=== PATIENT | male | born 1940 ===

== ENCOUNTER 2023-05-08 14:08 | Outpatient (AMB) | payer MEDICARE, SELFPAY ==
[2023-05-08 14:30] VITALS: BP 136/70; PULSE 103; TEMP 36.3; O2SAT 96; BMI 27.5
--- NOTE | 2023-05-08 14:30 | A.OFFVIS_ITS ---
Intake Vital Signs 05/08/23 14:30 Height 5 ft 10 in Weight 191 lb 5.78 oz BMI 27.5 BP 136/70 Blood Pressure Location Rt brachial Position Sitting Pulse 103 H Pulse Source Pulse Oximeter Temp 97.3 F Temp Source Skin Pulse Oximetry (%) 96 Intake Visit Reasons: Worsening Arthritis ? of psoriasis vs RA Intake Note: * New pt presents today for consult. * C/o finger pain. 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 Patient stated that he was diagnosed with psoriasis more than 30 years ago. He would usually have patches on his elbows. He never received any specific treatment for it. Back in September of 2022 he had abrupt onset of pain and swelling of his right hand. He received a 5 day course of prednisone with rapid resolution of his joint pain and swelling and improvement of his psoriasis skin rash. Over the last few months however patient has been getting worsening psoriasis rashes currently it is all over his upper extremities, on his forehead, scalp, chest and back. He never had psoriasis that severe before. He lost 5 lb over the last few months through dieting. Denies any fevers. Denies any night sweats. Patient smoked since age 2. He is unaware of any family history of autoimmune rheumatic disease. He had 1 episode of gout affecting his right big toe more than 10 years ago, he was started on treatment for gout with no recurrence of gout. He has not taken any treatment for gout for many years. [facility] Medical History (Updated 05/08/23 @ 15:48 by Fran Mack MD) Gout Osteoarthritis Pain in joint, multiple sites Psoriasis Type 2 diabetes mellitus Surgical History No history of previous surgery Social History Household Members: Other Household Members Other:: Roommate Patient Tobacco Use Status: Current everyday Tobacco user Cigarette Packs Per Day: [address] [facility] [place]ralgias Skin/Breast Reports rash Physical Exam Vital Signs: Last Vital Signs Temp 97.3 F 05/08/23 14:30 Pulse 103 H 05/08/23 14:30 BP 136/70 05/08/23 14:30 Pulse Ox 96 05/08/23 14:30 BMI result Body Mass Index 27.5 Const General: cooperative, healthy appearing and comfortable Nutritional Appearance: overweight Orientation/consciousness: patient oriented x3 Limitations: no limitations HEENT Head: Yes normocephalic and Yes atraumatic Mouth: moist mucous membranes Resp Effort & Inspection: normal respiratory effort and able to speak in complete sentences Auscultation: clear to auscultation bilaterally Cardio Rate: regular rate GI Inspection: No distended Palpation (GI): Soft to palpation and nontender Skin Other: Extensive psoriasis affecting his upper extremities bilaterally, on his scalp, top of his forehead, back of his scalp, chest, back Neuro General: patient oriented x3 Extrem Other: No active synovitis Assessment & Plan Assessment & Plan (1) Psoriasis: Code(s): L40.9 - Psoriasis, unspecified Plan: This is an 82-year-old male with a past medical history of psoriasis and gout was referred for evaluation of joint pain and swelling. Back in September of 2022 patient had abrupt onset of inflammatory arthritis rapidly improved with prednisone. Patient has had minimal psoriasis for the last 30 years however over the last few months his psoriasis has become much more extensive. On exam today patient has extensive psoriasis. There is no active synovitis today Would likely need a DMARD for control his psoriasis. Will consider methotrexate. Check Infectious screening labs. Plan to start methotrexate once blood work is completed Start prednisone therapeutic taper Recommend dermatology evaluation Follow-up in 2 months Plan I spent 47 minutes reviewing patient's chart, evaluating patient, ordering diagnostic workup, counseling patient and documenting in the chart Orders: Orders Comprehensive Met. Panel Today L40.50 - Arthropathic psoriasis, unspecified C Reactive Protein Today L40.50 - Arthropathic psoriasis, unspecified Uric Acid Today M10.9 - Gout, unspecified Complete Blood Count Auto Diff Today L40.50 - Arthropathic psoriasis, unspecified Erythrocyte Sedimentation Rate Today L40.50 - Arthropathic psoriasis, unspecified Immunofixation Pnl, Serum Today L40.50 - Arthropathic psoriasis, unspecified Protein Electrophoresis, Serum Today L40.50 - Arthropathic psoriasis, unspecified Hepatitis A,B,C Profile Today Z11.59 - Encounter for screening for other viral diseases HIV Ab/Ag Today L40.50 - Arthropathic psoriasis, unspecified T Spot TB Today Z11.7 - Encounter for testing for latent tuberculosis infection XR hand wrist LT Today L40.50 - Arthropathic psoriasis, unspecified XR hand wrist RT Today L40.50 - Arthropathic psoriasis, unspecified Hemoglobin A1c Today R73.03 - Prediabetes Medications: New prednisone Take 4 tabs by mouth once daily with breakfast for 1 week then 3 tabs daily for 1 week then 2 tabs daily for 1 week then 1 tab daily for 1 week then stop 5 mg PO DIRECTED 70 tabs 0RF Coding Level of Care Code New Pt Level 4 (99324) Diagnoses Psoriasis L40.9
== END 2023-05-08 15:24 | disposition home or self-care (01) ==
PROVIDERS: PCP Internal Medicine; Visit Provider Student in an Organized Health Care Education/Training Program
DX: L40.9 Psoriasis, unspecified (principal)
CPT/HCPCS: 99204

== ENCOUNTER 2023-05-08 14:08 | Outpatient (REF) | payer OTHER, SELFPAY ==
--- NOTE | ~2023-05-08 | XR_ITS ---
STUDY: Bilateral hands Indication: Arthropathic psoriasis COMPARISON: None TECHNIQUE: 4 view each hand Right: No erosions, fractures or dislocations. Diffuse interphalangeal joint space narrowings. MCP joint space narrowings, most pronounced third digit. First carpometacarpal sclerosis and joint space narrowing. Radiocarpal sclerosis and joint space narrowing. Left: Diffuse interphalangeal joint space narrowings. Mild metacarpal phalangeal joint space narrowings. Sclerosis and joint space narrowings first carpometacarpal and radiocarpal joints. No fracture, dislocation or bony erosions. XR/XR hand wrist RT IMPRESSION: Multilevel bilateral arthritic changes.
--- NOTE | ~2023-05-08 | XR_ITS ---
STUDY: Bilateral hands Indication: Arthropathic psoriasis COMPARISON: None TECHNIQUE: 4 view each hand Right: No erosions, fractures or dislocations. Diffuse interphalangeal joint space narrowings. MCP joint space narrowings, most pronounced third digit. First carpometacarpal sclerosis and joint space narrowing. Radiocarpal sclerosis and joint space narrowing. Left: Diffuse interphalangeal joint space narrowings. Mild metacarpal phalangeal joint space narrowings. Sclerosis and joint space narrowings first carpometacarpal and radiocarpal joints. No fracture, dislocation or bony erosions. XR/XR hand wrist LT IMPRESSION: Multilevel bilateral arthritic changes.
[2023-05-08 15:52] LABS: MANUAL DIFF FLAG NO
[2023-05-08 17:04] LABS: Basophils Absolute Auto 0.2 X10*3/uL (0.0-0.2); Basophils Percent Auto 1.3 % (0-2); Eosinophils Absolute Auto 0.2 X10*3/uL (0.0-0.4); Eosinophils Percent Auto 1.7 % (0-4); Hematocrit 48.7 % (42.0-52.0); Hemoglobin 15.7 g/dl (14.0-18.0); Imm Gran Abs Auto 0.07 X10*3/uL (0.00-0.03); Imm Gran Pct Auto 0.6 % (0.0-0.4); Lymphocytes Absolute Auto 0.9 X10*3/uL (1.2-4.9); Lymphocytes Percent Auto 8.1 % (20-40); Mean Corpuscular HGB Conc 32.2 g/dl (31.0-36.0); Mean Corpuscular Hemoglobin 32.3 pg (27.0-33.0); Mean Corpuscular Volume 100.2 fL (80.0-98.0); Mean Platelet Volume 10.7 fL (9.4-12.4); Monocytes Absolute Auto 0.9 X10*3/uL (0.1-1.2); Monocytes Percent Auto 7.4 % (2-11); Neutrophils Absolute Auto 9.2 x10*3/uL (2.0-8.3); Neutrophils Percent Auto 80.9 % (45-73); Platelet Count 251 X10*3/uL (160-400); Red Blood Count 4.86 X10*6/uL (4.60-5.80); Red Cell Distribution Width 13.8 % (11.0-16.0); White Blood Count 11.4 X10*3/uL (4.8-10.8)
[2023-05-08 17:23] LABS: Estimated Average Glucose 100 mg/dL; Hemoglobin A1c % 5.1 %
[2023-05-08 17:32] LABS: Alanine Aminotransferase 18 U/L (0-40); Albumin Level 4.2 g/dL (3.5-5.0); Alkaline Phosphatase 63 U/L (39-117); Anion Gap 20 (12-20); Aspartate Amino Transferase 24 U/L (5-37); Bilirubin Total 0.9 mg/dL (0.0-1.0); Blood Urea Nitrogen 16 mg/dL (9-16); C Reactive Protein 1.46 mg/dL (< or = 0.50); Calcium 9.8 mg/dL (8.4-10.2); Carbon Dioxide 20 mmol/L (22-29); Chloride 105 mmol/L (96-108); Estimated Glomerular Filt Rate 52; Glucose Random 120 mg/dL (60-115); Sodium 141 mmol/L (135-145); Total Protein 8.2 g/dL (6.5-8.0); Uric Acid 11.9 mg/dL (3.4-7.0)
[2023-05-08 18:17] LABS: Erythrocyte Sedimentation Rate 14 MM/HR (0-15)
[2023-05-09 08:38] LABS: HBS Num1 0.14 mIU/mL (0-7.99); HBsAGNum1 0.46 S/CO (0.00-0.99); HIV AB/AG Nonreactive (Nonreactive); HIV Num 1 0.05 S/CO (0.00-0.99); Hepatitis A Antibody IgM 0.25 Index (0-0.79); Hepatitis B Core Antibody Nonreactive (Nonreactive); Hepatitis B Surface Antigen Negative (Negative); ~HepC Num1 0.09 S/CO (0.00-0.79); ~Hepatitis A Antibody IgM Nonreactive (Nonreactive); ~Hepatitis B Surface Antibody NONREACTIVE (Nonreactive); ~Hepatitis C Antibody Nonreactive (Nonreactive)
[2023-05-11 00:23] LABS: TS Negative Control Passed; TS Panel A 0; TS Panel B 0; TS Positive Control Passed; TSpotTB Negative (Negative)
[2023-05-12 16:48] LABS: Prot Elec - Albumin 4.2 g/dL (3.8-4.8); Prot Elec - Alpha1 0.4 g/dL (0.2-0.3); Prot Elec - Alpha2 0.7 g/dL (0.5-0.9); Prot Elec - Beta 1 0.5 g/dL (0.4-0.6); Prot Elec - Beta 2 0.4 g/dL (0.2-0.5); Prot Elec - Gamma 1.5 g/dL (0.8-1.7); Prot Elec - Total Protein 7.6 g/dL (6.1-8.1)
[2023-05-14 15:38] LABS: IgA 358 mg/dL (70-320); IgG 1659 mg/dL (600-1540); IgM 161 mg/dL (50-300)
== END 2023-05-08 14:09 | disposition home or self-care (01) ==
LOC: HO.LAB 14:08
PROVIDERS: PCP Internal Medicine; Visit Provider Student in an Organized Health Care Education/Training Program
DX: Z11.59 Encounter for screening for other viral diseases (principal); Z11.7 Encounter for testing for latent tuberculosis infection; Z11.4 Encounter for screening for human immunodeficiency virus [HIV]; L40.50 Arthropathic psoriasis, unspecified; R73.03 Prediabetes; M10.9 Gout, unspecified
CPT/HCPCS: 36415; 73110; 73130; 80053; 82784; 83036; 84165; 84550; 85025; 85652; 86140; 86334; 86481; 86704; 86706; 86709; 86803; 87340; 87389; 99202

== ENCOUNTER 2023-07-11 13:35 | Outpatient (AMB) | payer OTHER, MEDICARE, SELFPAY ==
--- NOTE | 2023-07-11 13:46 | A.OFFVIS_ITS ---
Intake Vital Signs 07/11/23 13:47 Height 5 ft 10 in Weight 188 lb 4.396 oz BMI 27.0 BP 97/70 Blood Pressure Location Rt brachial Position Sitting Pulse 105 H Pulse Source Pulse Oximeter Temp 97.4 F Temp Source Skin Pulse Oximetry (%) 97 Oxygen Delivery Method Room Air Intake Visit Reasons: PSA Intake Note: Patient here for PsA follow up. 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 States that his psoriasis cleared up few days after he saw me 2 months ago. He was prescribed a prednisone taper and methotrexate. Patient stated that he took methotrexate 3-4 times and stopped it as he felt it did not not do any good to him. Continues to take prednisone 5 mg daily. Stated that a few days after he saw me he also started taking a probiotic called skinacea that he believes significantly helped his symptoms. Initial history: This is an 82-year-old male who presents for evaluation of joint pain. Patient stated that he was diagnosed with psoriasis more than 30 years ago. He would usually have patches on his elbows. He never received any specific treatment for it. Back in September of 2022 he had abrupt onset of pain and swelling of his right hand. He received a 5 day course of prednisone with rapid resolution of his joint pain and swelling and improvement of his psoriasis skin rash. Over the last few months however patient has been getting worsening psoriasis rashes currently it is all over his upper extremities, on his forehead, scalp, chest and back. He never had psoriasis that severe before. He lost 5 lb over the last few months through dieting. Denies any fevers. Denies any night sweats. Patient smoked since age 2. He is unaware of any family history of autoimmune rheumatic disease. He had 1 episode of gout affecting his right big toe more than 10 years ago, he was started on treatment for gout with no recurrence of gout. He has not taken any treatment for gout for many years. [facility] Medical History (Updated 07/11/23 @ 14:37 by Fran Mack MD) Osteoarthritis Pain in joint, multiple sites Psoriasis Type 2 diabetes mellitus Surgical History No history of previous surgery Social History Household Members: Other Household Members Other:: Roommate Patient Tobacco Use Status: Current everyday Tobacco user Cigarette Packs Per Day: 1 Review of Systems Musc Denies arthralgias and Denies joint swelling Skin/Breast Denies rash Physical Exam Vital Signs: Last Vital Signs Temp 97.4 F 07/11/23 13:47 Pulse 105 H 07/11/23 13:47 BP 97/70 07/11/23 13:47 Pulse Ox 97 07/11/23 13:47 Oxygen Delivery Method Room Air 07/11/23 13:47 BMI result Body Mass Index 27.0 Const General: cooperative, healthy appearing and comfortable Nutritional Appearance: overweight Orientation/consciousness: patient oriented x3 Limitations: no limitations HEENT Head: Yes normocephalic and Yes atraumatic Resp Effort & Inspection: normal respiratory effort and able to speak in complete sentences Cardio Rate: regular rate Skin Other: Psoriasis essentially cleared up compared to last visit. Today he has Few flaky patches behind right ear. Neuro General: patient oriented x3 Extrem Other: No active synovitis Assessment & Plan Assessment & Plan (1) Psoriasis: Code(s): L40.9 - Psoriasis, unspecified Plan: This is an 82-year-old male with a past medical history of psoriasis and gout was referred for evaluation of joint pain and swelling. Back in September of 2022 patient had abrupt onset of inflammatory arthritis rapidly improved with prednisone. Patient has had minimal psoriasis for the last 30 years however over the last few months his psoriasis has become much more extensive. Last visit patient had extensive psoriasis. I prescribed prednisone taper and methotrexate. Patient took methotrexate for 4 weeks then discontinued it as he felt did not help. His skin however rapidly cleared a few days after he saw me. He also started a probiotic called Ski nacea. On exam today his skin almost cleared up entirely. He is on prednisone 5 mg daily Reduce prednisone to 2.5 mg daily for 1 month then discontinue prednisone. Recommend dermatology evaluation Follow-up in 2 months (2) Gout: Code(s): M10.9 - Gout, unspecified Qualifiers: Gout site: multiple sites Gout etiology: idiopathic Chronicity: chronic Presence of tophus: without tophus Qualified Code(s): M1A.09X0 - Idiopathic chronic gout, multiple sites, without tophus (tophi) Plan: History of gout many years ago, was on allopurinol in the past. Has not been on allopurinol recently. No recent gout attacks. Recent uric acid level 11.9. Will discuss urate lowering therapy in the future Plan I spent 27 minutes reviewing patient's chart, evaluating patient, placing orders counseling patient and documenting in the chart Medications: New prednisone 2.5 mg PO DAILY 30 tabs 0RF Discontinued methotrexate sodium Discontinued Reason: Doctor's Order Take 6 tabs by mouth once weekly for 2 weeks then 8 tablets once weekly 64 tabs 0RF folic acid Discontinued Reason: Doctor's Order 1 mg PO DAILY 90 tabs 1RF prednisone Take 4 tabs by mouth once daily with breakfast for 1 week then 3 tabs daily for 1 week then 2 tabs daily for 1 week then 1 tab daily for 1 week then stop Discontinued Reason: Doctor's Order 5 mg PO DIRECTED 70 tabs 0RF Coding Level of Care Code Est Pt Level 4 (74928) Diagnoses Psoriasis L40.9 Idiopathic chronic gout of multiple sites without tophus M1A.09X0 Gout site: multiple sites Gout etiology: idiopathic Chronicity: chronic Presence of tophus: without tophus
[2023-07-11 13:47] VITALS: BP 97/70; PULSE 105; TEMP 36.3; O2SAT 97; BMI 27.0
== END 2023-07-11 14:59 | disposition home or self-care (01) ==
PROVIDERS: PCP Internal Medicine; Visit Provider Student in an Organized Health Care Education/Training Program
DX: L40.9 Psoriasis, unspecified (principal); M1A.09X0 Idiopathic chronic gout, multiple sites, without tophus (tophi)
CPT/HCPCS: 99214

== ENCOUNTER → 2023-07-11 13:35 | Outpatient (BNVA) | payer OTHER, MEDICARE, SELFPAY | PROVIDERS: PCP Internal Medicine; Visit Provider Student in an Organized Health Care Education/Training Program | DX: L40.9 Psoriasis, unspecified (principal); M1A.09X0 Idiopathic chronic gout, multiple sites, without tophus (tophi) | CPT/HCPCS: 99212 ==

== ENCOUNTER 2023-08-20 08:33 | Outpatient (AMB) | payer OTHER, SELFPAY ==
--- NOTE | 2023-08-20 08:41 | MHC.OFFVIS ---
Intake Vital Signs 08/20/23 08:42 Height 5 ft 10 in Weight 189 lb 2.506 oz BMI 27.1 BP 126/78 Blood Pressure Location Lt brachial Position Sitting Pulse 117 H Pulse Source Pulse Oximeter Temp 97.6 F Temp Source Skin Pulse Oximetry (%) 96 Intake Visit Reasons: Gout Intake Note: Pt last seen 07/11/23, presents today for follow up. MTX and folic acid discontinued. Pt was prescribed prednisone taper, he completed this about 2 weeks ago. When asked how he has been doing he stated I just don't give a damn anymore; that's a real change in my personality. 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 He remains clear of psoriasis. States that he had 1 gout attack 15 years ago. He was taking allopurinol for a long time that stop taking it 2 years ago. Of note patient had an attack of an inflammatory arthritis in September of 2022 treated with 5 day course of prednisone. Initial history: This is an 82-year-old male who presents for evaluation of joint pain. Patient stated that he was diagnosed with psoriasis more than 30 years ago. He would usually have patches on his elbows. He never received any specific treatment for it. Back in September of 2022 he had abrupt onset of pain and swelling of his right hand. He received a 5 day course of prednisone with rapid resolution of his joint pain and swelling and improvement of his psoriasis skin rash. Over the last few months however patient has been getting worsening psoriasis rashes currently it is all over his upper extremities, on his forehead, scalp, chest and back. He never had psoriasis that severe before. He lost 5 lb over the last few months through dieting. Denies any fevers. Denies any night sweats. Patient smoked since age 2. He is unaware of any family history of autoimmune rheumatic disease. He had 1 episode of gout affecting his right big toe more than 10 years ago, he was started on treatment for gout with no recurrence of gout. He has not taken any treatment for gout for many years. [facility] Medical History Osteoarthritis Pain in joint, multiple sites Psoriasis Type 2 diabetes mellitus Surgical History No history of previous surgery Social History Household Members: Other Household Members Other:: Roommate Patient Tobacco Use Status: Current everyday Tobacco user Cigarette Packs Per Day: 1 Review of Systems Musc Denies arthralgias and Denies joint swelling Skin/Breast Denies rash Physical Exam Vital Signs: Last Vital Signs Temp 97.6 F 08/20/23 08:42 Pulse 117 H 08/20/23 08:42 BP 126/78 08/20/23 08:42 Pulse Ox 96 08/20/23 08:42 BMI result Body Mass Index 27.1 Const General: cooperative, healthy appearing and comfortable Nutritional Appearance: overweight Orientation/consciousness: patient oriented x3 Limitations: no limitations HEENT Head: Yes normocephalic and Yes atraumatic Resp Effort & Inspection: normal respiratory effort and able to speak in complete sentences Cardio Rate: regular rate Skin Other: No psoriasis today Neuro General: patient oriented x3 Extrem Other: No active synovitis Assessment & Plan Assessment & Plan (1) Psoriasis: Code(s): L40.9 - Psoriasis, unspecified Plan: This is an 82-year-old male with a past medical history of psoriasis and gout was referred for evaluation of joint pain and swelling. Back in September of 2022 patient had abrupt onset of inflammatory arthritis rapidly improved with prednisone. Patient has had minimal psoriasis for the last 30 years however over the last few months his psoriasis has become much more extensive. I prescribed prednisone taper and methotrexate. Patient took methotrexate for 4 weeks then discontinued it as he felt did not help. His skin however rapidly cleared a few days after he saw me. Likely with prednisone. He also started a probiotic called Skinacea. On exam today his skin almost cleared up entirely. He is on prednisone 5 mg daily Reduce prednisone to 2.5 mg daily for 1 month then discontinue prednisone. Patient will be moving to [place] next month. Follow-up with PCP in [place] (2) Gout: Code(s): M10.9 - Gout, unspecified Qualifiers: Gout site: multiple sites Gout etiology: idiopathic Chronicity: chronic Presence of tophus: without tophus Qualified Code(s): M1A.09X0 - Idiopathic chronic gout, multiple sites, without tophus (tophi) Plan: History of gout 15 years ago. Was on allopurinol 100 mg daily for many years, stopped taking it 2 years ago. He had an attack of an inflammatory arthritis in September of 2022 treated with 5 days of prednisone by PCP. It is unclear whether this was a gout flare-up verses an episode of psoriatic arthritis. His uric acid level is 11.9. Patient needs to restart urate lowering therapy. Start allopurinol 100 mg daily for 1 week then increase to 200 mg daily. 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
[2023-08-20 08:42] VITALS: BP 126/78; PULSE 117; TEMP 36.4; O2SAT 96; BMI 27.1
== END 2023-08-20 09:18 | disposition home or self-care (01) ==
PROVIDERS: PCP Internal Medicine; Visit Provider Student in an Organized Health Care Education/Training Program
DX: L40.9 Psoriasis, unspecified (principal); M1A.09X0 Idiopathic chronic gout, multiple sites, without tophus (tophi)
CPT/HCPCS: 99214

== ENCOUNTER → 2023-08-20 08:33 | Outpatient (BNVA) | payer OTHER, MEDICARE, SELFPAY | PROVIDERS: PCP Internal Medicine; Visit Provider Student in an Organized Health Care Education/Training Program | DX: L40.9 Psoriasis, unspecified (principal); M1A.09X0 Idiopathic chronic gout, multiple sites, without tophus (tophi) | CPT/HCPCS: 99212 ==